=== PATIENT | male | born 1955 | race Caucasian/White ===

== ENCOUNTER 2017-05-28 20:09 | Emergency (ER) | payer SELFPAY ==
[~2017-05-28] VITALS: Ht 177.8 cm; Wt 79.6 kg
[2017-05-28 20:11] VITALS: BP 145/67; TEMP 36.5; Ht 177.8 cm; Wt 79.6 kg
[2017-05-28] MEDS ORDERED: LISI-729 PO (20:36)
[2017-05-28] MEDS ORDERED: NTRGSL/4 UT (20:36)
[2017-05-28] MEDS ORDERED: GLC/500 PO (20:36)
[2017-05-28] MEDS ORDERED: CLOP1TAB15 PO (20:36)
[2017-05-28] MEDS ORDERED: XYLOCAINE 1%/SOD BICARB 20 ML VIAL INFIL ONE (20:45)
[2017-05-28] MEDS ORDERED: HYDROCODONE/ACETAMOPHEN 5/325MG TAB PO ONE (20:45)
--- NOTE | 2017-05-28 20:56 | DIAGNOSTIC IMAGING REPORT ---
RIGHT HAND MIN 3 VIEWS ROUTINE CLINICAL HISTORY: 62 years-old Male presenting with R hand pain; closed in metal container. TECHNIQUE: Frontal, oblique, and lateral views of the right hand were obtained. COMPARISON: None. FINDINGS: An overlying bandage is noted along the right fifth finger. Nondisplaced acute fracture of the head of the distal phalanx of the fifth finger. Additional nondisplaced acute mildly comminuted fracture of the head of the distal phalanx of the third finger. No malalignment at the proximal or distal interphalangeal joints. Remaining osseous structures appear intact. IMPRESSION: Nondisplaced acute fractures of the distal phalanges of the third and fifth fingers as described above. Electronically signed by: Dean Arriaga M.D. 05/28/2017 8:55 PM Dictated Date/Time: 05/28/2017 8:52 PM
[2017-05-28] MEDS ORDERED: CEFAZOLIN SOD 1000MG/55 ML D5W IV STA (20:58)
[2017-05-28] MEDS ORDERED: CEPHALEXIN 500MG HOME PACK 1 EA BTL PO ONE (21:45)
[2017-05-28] MEDS ORDERED: PERCOCET HOME PACK PO ONE (21:45)
[2017-05-28] MEDS ORDERED: CEPH500C2 PO (21:48)
[2017-05-28] MEDS ORDERED: OXYC-57 PO (21:48)
[2017-05-28 22:08] VITALS: PULSE 72; O2SAT 97
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
== END 2017-05-28 22:09 | disposition home or self-care (01) ==
LOC: C.EDB 20:10 → C.EDD 22:09
DX: S62.666B Nondisplaced fracture of distal phalanx of right little finger, initial encounter for open fracture (principal); S61.214A Laceration without foreign body of right ring finger without damage to nail, initial encounter; S62.662A Nondisplaced fracture of distal phalanx of right middle finger, initial encounter for closed fracture; S60.031A Contusion of right middle finger without damage to nail, initial encounter; W22.8XXA Striking against or struck by other objects, initial encounter; E11.9 Type 2 diabetes mellitus without complications; I10 Essential (primary) hypertension; N28.9 Disorder of kidney and ureter, unspecified; I51.9 Heart disease, unspecified; F17.200 Nicotine dependence, unspecified, uncomplicated